=== PATIENT | female | born 1945 | race Caucasian/White ===

== ENCOUNTER 2017-05-07 07:03 | Inpatient (IN) | payer OTHER ==
[~2017-05-07] VITALS: Ht 162.6 cm; Wt 83.5 kg
--- NOTE | ~2017-05-07 | O ---
[facility] [place] [address] OPERATIVE REPORT Name: PAIGE GONCALVES Room #: 411-P [facility] IN M.R.#: [id number] Admission: 05/07/17 Attend Phys: Octaviano Tolentino MD Discharge: Date of : 49 Report #: [id number] THIS REPORT FOR: //name// CC: Michael Tolentino DATE OF SERVICE: 05/07/2017 PREOPERATIVE DIAGNOSES: Right hindfoot osteoarthrosis and ankle osteoarthrosis. POSTOPERATIVE DIAGNOSIS: Right hindfoot osteoarthrosis and ankle osteoarthrosis. PROCEDURE: Right tibiotalocalcaneal arthrodesis. SURGEON: Octaviano Tolentino MD ANESTHESIA: General. ESTIMATED BLOOD LOSS: 10 mL. DRAINS: No drains. TOURNIQUET TIME: 70 minutes. DESCRIPTION OF PROCEDURE: The patient was brought to the operating room where she was placed under general anesthesia. Once under adequate general anesthesia, her right lower extremity was prepped and draped in sterile manner. The extremity was elevated, exsanguinated, tourniquet placed to 300 mmHg. A lateral incision was then made over the distal the fibula. Dissection was carried sharply down to the bone. The bone was then completely exposed. Extension of the incision was made across the subtalar joint. The fibula was then transected and any soft tissue was released sharply with a 15 blade to remove the distal fibula. The subtalar and tibiotalar joints were then subsequently repaired removing any cartilage with osteotomes, curettes, and a landry. Once complete, the guidewire for the Synthes retrograde intramedullary tibiotalocalcaneal arthrodesis nail was then placed through the plantar foot through the calcaneus under fluoroscopic guidance. The reamer was then introduced to open the cortex through the calcaneus and talus into the tibiotalar joint. The guidewire was then placed down the shaft of the tibia and subsequently reaming to 13 mm was achieved. The intramedullary nail was then placed retrograde from the plantar foot into the tibia with subsequent fixation with 2 posterior screws placed through an incision posteriorly and 2 medial screws placed utilizing fluoroscopy for guidance for proximal locking screws. Once complete, excellent alignment and fixation was achieved. The wounds were irrigated copiously and closed with ricardo in the plantar skin and posteriorly, [address] [address] OPERATIVE REPORT Name: PAIGE GONCALVES Room #: 411-P [facility] IN M.R.#: [id number] Admission: 05/07/17 Attend Phys: Octaviano Tolentino MD Discharge: Date of : 49 Report #: [id number] 2-0 Vicryl was used in the deep and subcutaneous tissues laterally and ricardo were used for the skin there. A separate incision anteromedially was used to remove a large osteophyte there, this was a 2 cm incision. The osteophyte was sharply then excised with a 15 blade. This wound was irrigated copiously and closed with 2-0 Vicryl in the subcutaneous tissues and ricardo for the skin. The wounds were then dressed with Xeroform, 4 x 4s, and sterile soft compressive dressing with a short-leg cast was placed. Tourniquet was let down at 70 minutes. Toes were pink and warm with good capillary refill. There were no complications from the procedure. The patient tolerated the procedure well and went to the recovery room without incident. By: 0908 [id number] Octaviano Tolentino MD /jorge alberto
[~2017-05-07 07:03] MED LIST: ASPIRIN325 PO; ATORVASTATIN CA40 MG PO; CENTRUM SILVER1 EAC4 PO; DESVENLAFAXINE100 M2 PO; FISH OIL 1,001000 M2 PO; HYDROCODONE-AP1 EAC6 PO; IRON325 PO; MAGNESIUM OXID400 MG PO; MOBIC15 MG PO; PRINIVIL20 MG PO; VITAMIN B-12500 MCG PO; VITAMIN E400 UNIT PO
[2017-05-07 08:59] LABS: HEMATOCRIT 33.8 % (37.0-47.0); HEMOGLOBIN 11.3 gm/dL (12.0-15.0); MCH 29.2 pg (26.0-34.0); MCHC 33.4 g/dL (28.0-37.0); MCV 87.2 fL (80.0-100.0); RBC 3.88 mil/uL (4.20-5.00); RDW 16.4 % (10.5-14.5); WBC 6.4 thou/uL (4.0-11.0)
[2017-05-07 09:57] VITALS: BP 121/70
[2017-05-07 20:00] VITALS: BP 115/67
[2017-05-07 23:10] VITALS: BP 97/49
[2017-05-08 04:21] LABS: HEMATOCRIT 29.8 % (37.0-47.0); HEMOGLOBIN 9.7 gm/dL (12.0-15.0)
[2017-05-08 04:30] VITALS: BP 103/58
[2017-05-08 04:39] LABS: POTASSIUM 4.2 mmol/L (3.5-5.1)
[2017-05-08 08:20] VITALS: BP 134/74
[2017-05-08 11:46] VITALS: BP 124/69
[2017-05-08 16:27] VITALS: BP 134/76
[2017-05-08 20:00] VITALS: BP 121/57
[2017-05-09 06:04] VITALS: BP 110/56
[2017-05-09 09:22] VITALS: BP 121/60
[2017-05-09 16:00] VITALS: BP 112/71
[2017-05-09 20:09] VITALS: BP 118/62
[2017-05-10 03:10] VITALS: BP 111/54
[2017-05-10] MEDS ORDERED: PERCOCET 7.5-31 EACH PO (08:01)
== END 2017-05-10 18:23 | DRG 493 ==
LOC: 4N 07:03 → TBA 07:03 → 4N 13:54 → PRE 14:16 → 4N 05-10 18:23
PROVIDERS: Orthopaedic Surgery Foot and Ankle Surgery
PROC: 0SGF0ZZ (ICD-10-PCS; principal; 2017-05-07)
DX: M13.871 Other specified arthritis, right ankle and foot (principal); D62 Acute posthemorrhagic anemia; M24.671 Ankylosis, right ankle; Z96.651 Presence of right artificial knee joint; K21.9 Gastro-esophageal reflux disease without esophagitis; J45.909 Unspecified asthma, uncomplicated; I10 Essential (primary) hypertension; E78.5 Hyperlipidemia, unspecified; Z96.612 Presence of left artificial shoulder joint; F32.9 Major depressive disorder, single episode, unspecified; Z79.82 Long term (current) use of aspirin; Z79.899 Other long term (current) drug therapy; Z88.0 Allergy status to penicillin; Z91.041 Radiographic dye allergy status
CPT/HCPCS: 10790; 50010; 50101; 50386; 50635; 51008; 51412; 52056; 52120; 53023; 55430; 56524; 57091; 62110; 62900; 64041; 64042; 70005

== ENCOUNTER 2019-10-31 06:55 | Inpatient (IN) | payer OTHER ==
[~2019-10-31] VITALS: Ht 165.1 cm; Wt 89.1 kg
--- NOTE | ~2019-10-31 | O ---
[facility] [place] [address] OPERATIVE REPORT Name: PAIGE GONCALVES Room #: 442-P ADM IN M.R.#: [id number] Admission: 10/31/19 Attend Phys: Octaviano Tolentino MD Discharge: Date of : 49 Report #: [id number] THIS REPORT FOR: cc: Michael Kamraa MD,Michael Tolentino,Octaviano Wheat MD ~ CC: Michael Tolentino DATE OF SERVICE: 10/31/2019 PREOPERATIVE DIAGNOSES: Left hindfoot and subtalar and ankle osteoarthrosis with hindfoot deformity. POSTOPERATIVE DIAGNOSES: Left hindfoot and subtalar and ankle osteoarthrosis with hindfoot deformity. PROCEDURE: Left tibiotalar calcaneal arthrodesis. SURGEON: Dr. Octaviano Tolentino. DIRECTOR OF ANALYTICAL DEVELOPMENT: Yuliet Landaverde. ANESTHESIA: General. ESTIMATED BLOOD LOSS: Minimal. DRAINS: No drains. TOURNIQUET TIME: 90 minutes. DESCRIPTION OF PROCEDURE: The patient brought to the operating room where she was placed under general anesthesia. Once under adequate general anesthesia, her left lower extremity was then prepped and draped in sterile manner. The extremity was elevated, exsanguinated and tourniquet placed to 300 mmHg. A lateral incision over the distal fibula was then made. This was dissected down through the soft tissue to distal fibula, which was then completely exposed and freed from the surrounding soft tissue with a 15 blade. A sagittal saw was then utilized to transect the fibula, which was then removed utilizing a large rongeur and a 15 blade to free any remaining soft tissue. Exposure was then made of the tibiotalar joint, which was then denuded of any cartilage utilizing curettes, osteotomes and a landry to good bleeding subchondral bone. The subtalar joint had auto fused. Therefore, the Achilles tendon was released through a small stab incision with a 15 blade to allow the foot to be realigned. Once it was held in a realigned state, utilizing fluoroscopy for guidance, the guidewire for the intramedullary nail was then placed from the plantar foot through the [address] [address] OPERATIVE REPORT Name: PAIGE GONCALVES Room #: 442-P ADM IN M.R.#: [id number] Admission: 10/31/19 Attend Phys: Octaviano Tolentino MD Discharge: Date of : 49 Report #: [id number] plantar calcaneus and talus into the tibia. The distal tibia was then opened with the opening reamer and the guidewire was passed through the bone. Reaming was then achieved up to a 13-mm reamer. A size 12 long nail was then placed into the leg. Signafuse graft was placed into the tibiotalar joint during this portion as well for fixation. Utilizing fluoroscopy for guidance and the guide for the posterior to anterior locking screws, 2 posterior to anterior locking screws were then placed through the distal nail and the calcaneus. Adjusting the guide, two transverse locking screws were then placed through the nail as well in the static mode. Excellent fixation and alignment was achieved as verified under fluoroscopy. The wound was then irrigated copiously and closed with 2-0 Vicryl in the deep and subcutaneous tissues and ricardo were used for the skin. The wounds were dressed with Xeroform, 4 x 4s, and a sterile soft compressive dressing was placed along with a short leg cast. Tourniquet was let down at 90 minutes. Toes were pink and warm with good capillary refill. There were no complications from the procedure. The patient tolerated the procedure well and was taken to recovery room without incident. By: 1030 1054 Octaviano Tolentino MD /jorge alberto
[~2019-10-31 06:55] MED LIST changes: +HYDROCODON-ACE1 EAC7 PO; +LISINOPRIL10 MG PO; +MULTI VITAMIN1 EACH PO; +PERCOCET 7.5-31 EACH PO
[2019-10-31 11:35] VITALS: BP 160/71
[2019-10-31 15:42] VITALS: BP 149/73
[2019-10-31] MEDS ORDERED: ROLAIDS CHEWAB1 EAC1 PO (16:05)
--- NOTE | 2019-10-31 16:32 | EKG ---
[facility] [place] [address] ELECTROCARDIOGRAM REPORT Name: PAIGE GONCALVES Room #: 442- ADM IN M.R.#: [id number] Admission: 10/31/19 Attend Phys: Octaviano Tolentino MD Discharge: Date of : 49 Report #: [id number] THIS REPORT FOR: cc: Michael Kamara MD, David Laurence MD Lundgren,Adriel Archibald MD [facility] ~ THIS REPORT FOR: //name// [facility] Test Date: 2019-10-31 Test Time: 10:51:08 Pat Name: PAIGE GONCALVES Department: Room: 44 Gender: F Pan Puller: susie : 1945 Requested By: Octaviano Tolentino Order Number: [id number] MD: Adriel Espino Measurements Intervals [place] Rate: 68 P: 30 RI: 199 QRS: 2 QRSD: 97 T: 27 QT: 401 QTc: 427 Interpretive Statements Sinus rhythm Normal tracing No previous ECG available for comparison Electronically Signed On 10-31-2019 16:30:53 [place] by Adriel Espino [email or web address] <ELECTRONICALLY SIGNED> By: Adriel Espino MD, [facility] 10/31/19 1630 1051 105 Adriel Espino MD, [facility] /EPI
[2019-10-31 17:48] VITALS: BP 141/67
[2019-10-31 19:00] VITALS: BP 153/75
--- NOTE | 2019-10-31 19:38 | NUR ---
PT CARE ASSUMED AT 1545 POST OPERATIVE. A&Ox4. VITALS STABLE. FAMILY IN ROOM. CAST PRESENT ON LEFT FOOT TO KNEE. PT BLEAD THROUGH THE CAST ON . DR. SHIPLEY IS AWARE AND GAVE ORDERS TO ADD 4x4, ABD'D AND KERLIX TO REINFORCE. CONTINUE TO REINFORCE WITHOUT REMOVING OLD BANDAGES FOR MD TO SEE IN THE. AM. PT HAS URINATED. KNEE SCOOTER IN THE ROOM. NON WEIGHTBAIRRING ON THE LEFT HEEL. IV PATENT WITH NO REDNESS OR EDEMA, FLUIDS INFUSING. SCD'S IN PLACE ON R. LEG ONLY. FALL PROTOCOLL IN PLACE. CALL LIGHT IN REACH.
[2019-11-01 04:15] VITALS: BP 131/65
--- NOTE | 2019-11-01 05:22 | NUR ---
PT AOX4. PT REPORTS PAIN IN LEFT FOOT. PT RECEIVING PRN Q2HR IV MORPHINE AND PRN Q6HR PO OXYCODONE. PT TOLERATING REGULAR DIET AND PO INTAKE OF FLUIDS WITHOUT ISSUE. PT ABLE TO REPOSITION HERSELF IN BED INDEPENDENTLY, FREQUENT REPOSITIONING ENCOURAGED. PT REQUIRES X1 ASSIST WITH TRANSFERS TO BEDSIDE COMMODE WITH WALKER, NWB TO LEFT FOOT. LEFT FOOT CAST INTACT, REINFORCED DRESSINGS APPLIED DUE TO BLOODY DRAINAGE. PT ENCOURAGED TO NOTIFY STAFF FOR ALL NEEDS. CALL LIGHT WITHIN REACH, BED ALARM ON, BED IN LOWEST POSITION. WILL CONTINUE TO MONITOR.
[2019-11-01 06:04] LABS: HEMATOCRIT 29.9 % (37.0-47.0); HEMOGLOBIN 9.5 gm/dL (12.0-15.0); MCH 27.9 pg (26.0-34.0); MCHC 31.8 g/dL (28.0-37.0); MCV 87.6 fL (80.0-100.0); RBC 3.41 mil/uL (4.20-5.00); RDW 16.6 % (10.5-14.5); WBC 5.6 thou/uL (4.0-11.0)
[2019-11-01 06:16] LABS: CALCIUM 8.1 mg/dL (8.5-10.1); CREATININE 0.6 mg/dL (0.6-1.0); MAGNESIUM 1.8 mg/dL (1.8-2.4); POTASSIUM 4.3 mmol/L (3.5-5.1)
[2019-11-01 08:04] VITALS: BP 124/60
[2019-11-01 17:00] VITALS: BP 126/58
[2019-11-01 19:10] VITALS: BP 155/86
--- NOTE | 2019-11-01 20:26 | NUR ---
PT RESTING IN BED HAS LEFT FOOT IN CAST STAFF, HAD ANKLE RECONSTRUCTION.PT ALERT XS 4. GIVEN PRN PAIN MEDS AND WITH GAUZE REINFORCED DRESSING TO LEFT FOOT. PT CONT USES BSC. ROOM AIR. FAMILY AT BEDSIDE.
[2019-11-02 04:20] VITALS: BP 126/53
--- NOTE | 2019-11-02 08:18 | NUR ---
PT TRANSFERRING TO BEDSIDE COMMODE AND IS TOLERATING FAIR. PERCOCET PROVIDING PAIN RELIEF. RESTING COMFORTABLY. NO NEEDS VOICED. CALL LIGHT WITHIN REACH. FREQUENT OBSERVATION.
[2019-11-02 09:29] VITALS: BP 125/56
[2019-11-02 09:37] LABS: HEMATOCRIT 31.2 % (37.0-47.0); HEMOGLOBIN 9.9 gm/dL (12.0-15.0); MCH 27.9 pg (26.0-34.0); MCHC 31.7 g/dL (28.0-37.0); RBC 3.55 mil/uL (4.20-5.00); RDW 16.8 % (10.5-14.5); WBC 5.4 thou/uL (4.0-11.0)
[2019-11-02 09:44] LABS: CALCIUM 9.2 mg/dL (8.5-10.1); CREATININE 0.8 mg/dL (0.6-1.0); MAGNESIUM 1.8 mg/dL (1.8-2.4); POTASSIUM 3.7 mmol/L (3.5-5.1)
[2019-11-02 09:48] LABS: % SATURATION 6 % (20-39); IRON 16 ug/dL (50-170); TIBC 255 ug/dL (250-450)
[2019-11-02 11:02] LABS: FOLIC ACID 34.8 ng/mL (8.6-58.9)
[2019-11-02 18:08] VITALS: BP 142/67
--- NOTE | 2019-11-02 18:34 | NUR ---
VSS-AFEBRILE. LUNGS CLEAR-ROOM AIR. PATIENT AND FAMILY UPSET TODAY REGARDING PATIENTS PAIN MEDICATION. PATIENT STATES THAT OVERNIGHT, THE NURSE "TOOK TWO HOURS TO BRING HER PAIN MEDICATION." PATIENT STATES THAT HER PAIN WAS "OUT OF CONTROL BECAUSE OF THIS DELAY", AND THAT SHE WAS ADVISED TO "LAY OFF" THE MORPHINE, BECAUSE SHE WILL BE DISCHARGING SOON. I ASSURED FAMILY, AND PATIENT THAT THE MEDICATTIONS WILL BE ADMINISTERED IN A TIMELY FASHION, AND THAT THE MORPHINE CAN BE GIVEN FOR BREAKTHROUGH PAIN. MORPHINE WAS GIVEN TWICE DURING THE DAY SHIFT, AND PO PAIN MEDICATION EVERY SIX HOURS PRESCRIBED. FAMILY ASKED THAT THE PATIENT ADVOCATE BY CONTACTED, WILL LEAVE A MESSAGE FOR SHAW[employer]-THE PATIENT EXPERIENCE OFFICER. AT THIS TIME, ALL MEDICATIONS ARE ONBOARD, AND PATIENT AND FAMILY ARE COMFORTABLE. CALLS APPROPRIATELY FOR ANY NEEDED ASSISTANCE.
[2019-11-02 20:40] VITALS: BP 140/62
--- NOTE | 2019-11-03 00:43 | NUR ---
L ANKLE CAST IN PLACE - LEG ELEVATED, ICE TEENA USED ON AND OFF. PT USES BEDPAN. SO FAR PT DENIES PAIN. SHE IS ALERT AND ORIENTED, CALM AND COOPERATIVE. ROOM AIR, USING I/S. NO FURTHER CONCERNS.
[2019-11-03 04:00] VITALS: BP 141/70
[2019-11-03 07:44] VITALS: BP 108/67
--- NOTE | 2019-11-03 13:53 | NUR ---
PT ADMITTED RELATED TO LEFT ANKLE RECONSTRUCTION; L TTC FUSION 10/30. CM REVIEWED CHART AND SPOKE WITH CARE TEAM. CM MET WITH PT AT BEDSIDE THIS DAY. PT IS A&O X4. CM ROLE INTRODCUED. PT INDICATED SHE LIVES IN A SENIOR APARTMENT WITH NO STEPS WITH SHOWER BENCH, GRAB BARS. PT INDICATED SHE HAS A KNEE SCOOTER AND WHEELCHAIR FOR USE UPON DC. PT INDICATED SHE HAD GONE FOR POST ACUTE CARE STAY IN THE PAST AT [facility] IN [place] AND THAT SHE HOPES TO BE ABLE TO GO THERE SKILLED UPON THIS DISCHARGE. REFERRAL SENT. PT INDICATED SHE HAD USED [facility] UPON DC FROM [facility] AND SHE WOULD ALSO LIKE TO USE THEM AGAIN. REFERRAL SENT WILL NEED AUTH. CM TO FOLLOW INDICATED WITH DC PLANNING.
--- NOTE | 2019-11-03 16:43 | NUR ---
FAXED REFERRAL TO [facility] SPOKE WITH ADM. SHANICE HE RECEIVED REFERRAL AND WILL REVIEW. DP TO FOLLOW.
[2019-11-03 19:40] VITALS: BP 117/56
--- NOTE | 2019-11-03 20:06 | NUR ---
Assumed patient care around 1200. A/O, calm and pleasant. claiming that she did not want to be discharged today. complained pain in left leg, pain medication given and worked. no n/v.
[2019-11-04 03:45] VITALS: BP 117/66
[2019-11-04 08:07] VITALS: BP 127/63
[2019-11-04 09:19] VITALS: BP 127/63
--- NOTE | 2019-11-04 13:37 | NUR ---
PT DISCHARGING TODAY TO [facility] FAXED DC ORDERS/SUMMARY TO FACILITY SPOKE WITH KAY IN ADM HE RECEIVED DC ORDERS AND ARRANGED TRANSPORT BY [facility] FOR [phone]. NOTIFIED PT'S DTR (VALERIA) OF DC AND TIME OF TRANSPORT. UNIT NOTIFIED AND CHART COPY PER US. RN TO CALL REPORT TO [phone].
--- NOTE | 2019-11-04 14:25 | NUR ---
PT TO DISCHARGE TODAY TO [facility]. IV ACSESS DCD. HOME MED GIVEN TO PATIENT. ALL DISCHARGE PAPERWORK SIGNED AND COPY IN CHART. ALL BELONGINGS PACKED TO BE SENT WITH PATIENT. CALLED [facility] TO GIVE REPORT [phone]. LEFT MESSAGE WAS ANSWERING MACHINE. RX'S SENT WITH PATIENT.
--- NOTE | 2019-11-04 15:01 | NUR ---
PT DISCHARGED AT THIS TIME LEFT W/C VAN NO PAIN OR RESP DISTRESS AT THIS TIME. ALL BELONGINGS PACKED AND SENT WITH PATIENT .
--- NOTE | 2019-11-04 15:40 | NUR ---
CM RECIEVED PC FROM [facility] INDICATING THAT THEY HAD GIVEN AUTH FOR PT TO GO TO [facility] THIS DAY. THEY HAD GIVEN AUTH HUMBER TO SOMEONE NAMED MARIEL AT THE FACILITY. [facility] TRANSPORT ARRANGED FOR [phone]. CHART COPY MADE. ORDERS FAXED. PT AND DTR AWARE AND AGREEABLE. NURSE CALLED REPORT. NO OTHER CM INTERVENTION INDICATED. CASE CLOSED.
== END 2019-11-04 15:11 | DRG 494 ==
LOC: PRE 06:55 → 4S 10:22 → TBA 10:22 → 4S 15:21 → PRE 15:29 → 4S 11-04 15:11
PROVIDERS: Internal Medicine; ADMIT Orthopaedic Surgery Foot and Ankle Surgery
PROC: 0SGJ04Z Fusion of Left Tarsal Joint with Internal Fixation Device, Open Approach (ICD-10-PCS; principal; 2019-10-31)
PROC: 0SGG04Z Fusion of Left Ankle Joint with Internal Fixation Device, Open Approach (ICD-10-PCS; principal; 2019-10-31)
DX: M19.072 Primary osteoarthritis, left ankle and foot (principal); E11.610 Type 2 diabetes mellitus with diabetic neuropathic arthropathy; D50.9 Iron deficiency anemia, unspecified; E53.8 Deficiency of other specified B group vitamins; I10 Essential (primary) hypertension; E78.5 Hyperlipidemia, unspecified; Z86.73 Personal history of transient ischemic attack (TIA), and cerebral infarction without residual deficits; Z88.0 Allergy status to penicillin; Z91.041 Radiographic dye allergy status; Z79.899 Other long term (current) drug therapy; Z79.2 Long term (current) use of antibiotics; Z79.82 Long term (current) use of aspirin; Z79.891 Long term (current) use of opiate analgesic
CPT/HCPCS: 10102; 50010; 50101; 50133; 50386; 50635; 50951; 51412; 52120; 53341; 56524; 57091; 57180; 57213; 57452; 57484; 57485; 57486; 62110; 62900; 64039; 70005